=== PATIENT | female | born 1955 ===

== ENCOUNTER 2022-03-05 12:34 | Inpatient (IN) ==
[2022-03-05] MEDS ORDERED: SODIUM CHLORIDE 0.9% 1,000 ML IV PRN ×2 (14:07→15:44)
[2022-03-05 14:33] LABS: Basophils % 0.6 % (0.0-0.8); Eosinophils # 0.1 10*3/uL (0.0-0.87); Hematocrit 21.7 VOL% (35.7-47.0); Hemoglobin 6.7 GM/DL (12.0-16.0); Immature Granulocytes % 1.1 %; Immature Granulocytes Absolute 0.05 #; Lymphocytes # 1.2 10*3/uL (1.4-4.0); Lymphocytes % 25.3 % (21.3-54.2); Mean Corpuscular HGB Conc 30.9 GM/DL (32-36); Mean Platelet Volume 11.3 FL (9.6-12.0); Monocytes # 0.5 10*3/uL (0.11-0.8); Monocytes % 11.3 % (1.7-12.7); Neutrophils % 58.7 % (38.7-73.9); Platelet Count 91 T/CUMM (130-400); Red Blood Count 2.01 MC/CUMM (3.8-5.5); White Blood Count 4.6 T/CUMM (4-12)
[2022-03-05] MEDS ORDERED: GLUCAGON 1 MG VIAL IM PRN (15:41)
[2022-03-05] MEDS ORDERED: DEXTROSE 10% 250 ML BAG IV PRN (15:41)
[2022-03-05] MEDS: carvediloL 6.25 MG TABLET PO SCH (20:54)
[2022-03-05] MEDS: APIXABAN 2.5 MG TABLET PO SCH (20:54)
[2022-03-05] MEDS: FERROUS SULFATE 325 MG TABLET PO SCH (20:55)
[2022-03-05] MEDS: GABAPENTIN 300 MG CAPSULE PO SCH (20:55)
[2022-03-06] MEDS: ONDANSETRON 4 MG/2 ML VIAL IV PRN ×3 (02:45→20:44)
[2022-03-06 04:36] LABS: Basophils % 0.7 % (0.0-0.8); Eosinophils # 0.1 10*3/uL (0.0-0.87); Eosinophils % 2.3 % (0.00-10.9); Hematocrit 26.9 VOL% (35.7-47.0); Hemoglobin 8.4 GM/DL (12.0-16.0); Immature Granulocytes % 1.3 %; Immature Granulocytes Absolute 0.07 #; Lymphocytes % 17.7 % (21.3-54.2); Mean Corpuscular HGB Conc 31.2 GM/DL (32-36); Mean Corpuscular Volume 101.5 FL (87-102); Mean Platelet Volume 11.3 FL (9.6-12.0); Monocytes # 0.8 10*3/uL (0.11-0.8); Monocytes % 14.4 % (1.7-12.7); Neutrophils % 63.6 % (38.7-73.9); Platelet Count 77 T/CUMM (130-400); Red Blood Count 2.65 MC/CUMM (3.8-5.5); Red Cell Distribution Width 18.9 % (9.3-17.3); White Blood Count 5.6 T/CUMM (4-12)
[2022-03-06 04:57] LABS: Platelet Estimate Decreased
[2022-03-06 05:03] LABS: Albumin 2.4 G/DL (3.4-5.0); Bilirubin,Total 1.5 MG/DL (0.20-1.00); Calcium 8.2 MG/DL (8.5-10.1); Potassium 4.8 MMOL/L (3.5-5.1); Total Protein 5.3 G/DL (6.4-8.2)
[2022-03-06] MEDS: ASPIRIN EC 81 MG TABLET PO SCH (09:25)
[2022-03-06] MEDS: GABAPENTIN 300 MG CAPSULE PO SCH ×3 (09:26→20:48)
[2022-03-06] MEDS: APIXABAN 2.5 MG TABLET PO SCH (09:26)
[2022-03-06] MEDS: FERROUS SULFATE 325 MG TABLET PO SCH ×2 (09:26→20:51)
[2022-03-06] MEDS: carvediloL 6.25 MG TABLET PO SCH ×2 (09:26→20:47)
[2022-03-06] MEDS: FUROSEMIDE 20 MG TABLET PO SCH (09:26)
[2022-03-06 14:33] LABS: Hepatitis B Core IgM Quant 0.13 Index; Hepatitis B Surface Ag Quant < 0.10 Index; Hepatitis B Surface Ag Result Non-Reactive (NonReactive); Hepatitis C Virus Ab Quant 0.04 Index; Hepatitis C Virus Ab Result Non-Reactive (NonReactive)
[2022-03-06] MEDS: ACETAMINOPHEN 325 MG TABLET PO PRN (20:48)
[2022-03-07] MEDS: carvediloL 6.25 MG TABLET PO SCH ×2 (08:17→20:40)
[2022-03-07] MEDS: FERROUS SULFATE 325 MG TABLET PO SCH ×2 (08:17→20:40)
[2022-03-07] MEDS: ASPIRIN EC 81 MG TABLET PO SCH (08:17)
[2022-03-07] MEDS: FUROSEMIDE 20 MG TABLET PO SCH (08:17)
[2022-03-07] MEDS: GABAPENTIN 300 MG CAPSULE PO SCH ×3 (08:18→20:40)
[2022-03-07] MEDS ORDERED: BUPIVACAINE MPF 0.25% 10 ML VIAL ONE (10:52)
[2022-03-07] MEDS ORDERED: HEPARIN 5,000 UNIT/1 ML VIAL ONE (10:52)
[2022-03-07] MEDS ORDERED: LIDOCAINE MPF 1% /EPI 30 ML VIAL ONE (10:52)
[2022-03-07] MEDS ORDERED: SODIUM CHLORIDE 0.9% 250 ML IV SCH (11:00)
[2022-03-07] MEDS ORDERED: TISSUE ADHESIVE 1 EACH APPLICATOR TOP ONE (11:02)
[2022-03-07] MEDS ORDERED: propofoL 200 MG/20 ML VIAL IV ONE ×2 (11:06→12:17)
[2022-03-07] MEDS ORDERED: LIDOCAINE 2% 5 ML VIAL ONE (11:06)
[2022-03-07] MEDS ORDERED: fentaNYL 100 MCG/2 ML VIAL ONE (11:07)
[2022-03-07] MEDS ORDERED: MIDAZOLAM 2 MG/2 ML VIAL ONE (11:07)
[2022-03-07] MEDS ORDERED: ceFAZolin 1,000 MG VIAL ONE (11:38)
[2022-03-07] MEDS ORDERED: PHENYLEPHRINE 1 MG/10 ML SYRINGE IV ONE (11:41)
[2022-03-07] MEDS ORDERED: SODIUM CHLORIDE 0.9% 100 ML IV ONE (12:17)
[2022-03-07] MEDS ORDERED: ONDANSETRON 4 MG/2 ML VIAL ONE (12:17)
[2022-03-07] MEDS ORDERED: ONDANSETRON 4 MG/2 ML VIAL IV PRN (12:23)
[2022-03-07] MEDS ORDERED: PROMETHAZINE INJ 25 MG in SODIUM CHLORIDE 0.9% 50 ML IV PRN (12:23)
[2022-03-07] MEDS ORDERED: diphenhydrAMINE 50 MG/1 ML VIAL IV PRN (12:23)
[2022-03-07] MEDS ORDERED: HYDROmorphone 1 MG/1 ML SYRINGE IV PRN (12:23)
[2022-03-07] MEDS ORDERED: MEPERIDINE 25 MG/1 ML VIAL IV PRN (12:23)
[2022-03-07] MEDS: ACETAMINOPHEN 325 MG TABLET PO PRN ×2 (18:12→22:26)
[2022-03-07] MEDS ORDERED: DEXTROSE 50% 25 GM/50 ML VIAL IV PRN (19:09)
[2022-03-07] MEDS ORDERED: ZALEPLON 5 MG CAPSULE PO ONE (22:17)
[2022-03-08 05:53] LABS: Hematocrit 27.1 VOL% (35.7-47.0); Hemoglobin 8.4 GM/DL (12.0-16.0)
[2022-03-08 06:07] LABS: Calcium 8.3 MG/DL (8.5-10.1); Osmolality,Calculated 306.8 MOS/KG (273-304); Potassium 4.7 MMOL/L (3.5-5.1)
[2022-03-08] MEDS: ACETAMINOPHEN 325 MG TABLET PO PRN ×2 (06:15→11:13)
[2022-03-08] MEDS ORDERED: HEPARIN 10,000 UNIT/10 ML VIAL IV PRN (09:50)
[2022-03-08] MEDS: carvediloL 6.25 MG TABLET PO SCH ×2 (12:30→21:24)
[2022-03-08] MEDS: ASPIRIN EC 81 MG TABLET PO SCH (12:30)
[2022-03-08] MEDS: FUROSEMIDE 20 MG TABLET PO SCH (12:31)
[2022-03-08] MEDS: FERROUS SULFATE 325 MG TABLET PO SCH ×2 (12:31→21:24)
[2022-03-08] MEDS: GABAPENTIN 300 MG CAPSULE PO SCH ×3 (12:31→21:25)
[2022-03-09] MEDS ORDERED: ZALEPLON 5 MG CAPSULE PO ONE (00:50)
[2022-03-09 05:20] LABS: Hematocrit 25.8 VOL% (35.7-47.0)
[2022-03-09 05:43] LABS: Calcium 8.3 MG/DL (8.5-10.1); Osmolality,Calculated 292.1 MOS/KG (273-304)
[2022-03-09] MEDS: ASPIRIN EC 81 MG TABLET PO SCH (12:08)
[2022-03-09] MEDS: carvediloL 6.25 MG TABLET PO SCH (12:08)
[2022-03-09] MEDS: GABAPENTIN 300 MG CAPSULE PO SCH (12:08)
[2022-03-09] MEDS: FERROUS SULFATE 325 MG TABLET PO SCH (12:09)
[2022-03-09] MEDS: FUROSEMIDE 20 MG TABLET PO SCH (12:09)
[2022-03-09 12:29] VITALS: BP 174/68
== END 2022-03-09 14:00 | disposition home or self-care (01) | DRG 674 ==
LOC: N.EDINP 12:34 → N.ED 12:34 → SUATTDRO 15:41 → N.EDINP 18:14 → N.2W 18:33 → SUATTDRO 03-06 09:37 → N.5E 03-07 16:47
PROVIDERS: ADMIT Internal Medicine Geriatric Medicine; ATTEND Internal Medicine